=== PATIENT | male | born 1940 | race African-American/Black ===

== ENCOUNTER 2024-08-04 19:46 | Emergency (ER) | payer MEDICARE ==
[~2024-08-04] VITALS: Ht 180.3 cm; Wt 88.5 kg
[2024-08-04] MEDS: SODIUM CHLORIDE 0.9% 500ML 500 ML IV ONE (21:01)
[2024-08-04 22:05] VITALS: PULSE 75; RESP 17; TEMP 98.7
[2024-08-04 22:14] VITALS: BP 122/75; PULSE 75; RESP 17; TEMP 98.7; O2SAT 99
== END 2024-08-04 22:18 | disposition home or self-care (01) ==
LOC: FSED 19:50
DX: E11.65 Type 2 diabetes mellitus with hyperglycemia (principal); E86.0 Dehydration; E86.1 Hypovolemia; E03.9 Hypothyroidism, unspecified
CPT/HCPCS: 36415; 80053; 81003; 82948; 85025; 99284; J7040

== ENCOUNTER 2024-10-01 17:57 | Emergency (ER) | payer MEDICARE ==
[~2024-10-01] VITALS: Ht 180.3 cm; Wt 91.9 kg
[2024-10-01 18:13] VITALS: PULSE 62; RESP 20; TEMP 97.4
[2024-10-01 20:38] VITALS: BP 135/92; O2SAT 99
== END 2024-10-01 20:35 | disposition home or self-care (01) ==
LOC: FSED 18:14
DX: R60.9 Edema, unspecified (principal); M79.89 Other specified soft tissue disorders; I10 Essential (primary) hypertension; E11.9 Type 2 diabetes mellitus without complications; E03.9 Hypothyroidism, unspecified
CPT/HCPCS: 93971; 99284